=== PATIENT | male | born 1980 | race Caucasian/White ===

== ENCOUNTER 2024-08-09 10:29 | Emergency (ER) | payer OTHER, SELFPAY ==
[2024-08-09 10:32] VITALS: BP 146/86
[2024-08-09 10:39] VITALS: BMI 24.3
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
[2024-08-09 11:00] VITALS: BP 137/86
[2024-08-09 12:21] VITALS: BP 107/79
== END 2024-08-09 12:25 | disposition home or self-care (01) ==
LOC: EMR 10:29
PROVIDERS: EMERGENCY PHYSICIAN Emergency Medicine; FAMILY PHYSICIAN Family Medicine
DX: S16.1XXA Strain of muscle, fascia and tendon at neck level, initial encounter (principal); V49.40XA Driver injured in collision with unspecified motor vehicles in traffic accident, initial encounter
CPT/HCPCS: 99284; 70450; 72125; 72128

== ENCOUNTER 2025-03-04 23:01 | Emergency (ER) | payer OTHER, SELFPAY ==
[2025-03-04 23:02] VITALS: BMI 23.0
[2025-03-04 23:11] VITALS: BP 128/79
[2025-03-04 23:31] VITALS: BP 121/95
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
[2025-03-04] MEDS: NSS 1000 IV (23:53)
[2025-03-05] VITALS: BP 108/45
[2025-03-05 00:04] LABS: % Basophils 0.6 % (0-2); % Eosinophils 1.5 % (0-6); % Immature Granulocytes 0.5 % (0-0.5); % Monocytes 7.5 % (1.7-9.3); % Neutrophils 75.9 % (42.2-75.2); Absolute Basophils 0.1 10^3/uL (0-0.2); Absolute Eosinophils 0.2 10^3/uL (0-0.7); Absolute Immature Granulocytes 0.1 10^3/uL (0-0.05); Absolute Lymphocytes 1.9 10^3/uL (1.2-3.4); Absolute Neutrophils 10.3 10^3/uL (1.4-6.5); Hematocrit 41.7 % (39.0-52.0); Hemoglobin 14.7 g/dL (13.0-18.0); Mean Corp Hgb Conc. 35.3 g/dL (33.0-37.0); Mean Corpuscular Hgb 30.8 pg (27.0-31.0); Mean Corpuscular Volume 87.4 fL (80.0-94.0); Mean Platelet Volume 9.4 fL (7.4-10.4); Nucleated Red Blood Cells % 0 % (-); Platelet Count 248 10^3/uL (130-400); Red Blood Cell Count 4.77 10^6/uL (4.70-6.10); Red Cell Dist. Width 12.6 % (11.5-14.5); White Blood Cell Count 13.6 10^3/uL (4.8-10.8)
[2025-03-05 00:24] LABS: ALT (SGPT) 26 U/L (0-50); AST (SGOT) 34 U/L (17-59); Albumin 5.1 g/dl (3.5-5.0); Alkaline Phosphatase 62 U/L (38-126); Blood Urea Nitrogen 22 mg/dl (9-20); Calcium 10.1 mg/dl (8.4-10.2); Carbon Dioxide 25 mmol/L (22-30); Chloride 102 mmol/L (98-107); Estimated Creatinine Clearance 78 ml/min; Glucose 121 mg/dl (70-99); Potassium 4.4 mmol/L (3.5-5.1); Sodium 139 mmol/L (135-145); Total Bilirubin 1.5 mg/dl (0.2-1.3); Total Protein 7.6 g/dl (6.3-8.2); eGFR > 60.00
[2025-03-05 01:00] VITALS: BP 116/78
== END 2025-03-05 02:14 | disposition home or self-care (01) ==
LOC: EMR 23:01
PROVIDERS: EMERGENCY PHYSICIAN Student in an Organized Health Care Education/Training Program; FAMILY PHYSICIAN Family Medicine
DX: R55 Syncope and collapse (principal); S09.90XA Unspecified injury of head, initial encounter; W19.XXXA Unspecified fall, initial encounter
CPT/HCPCS: 99285; 96360; 96361; 70450; 80053; 85025; 93005